=== PATIENT | female | born 1935 | race Caucasian/White ===

== ENCOUNTER 2019-06-18 03:58 | Emergency (ER) | payer OTHER, MEDICARE ==
[~2019-06-18] VITALS: Ht 170.2 cm; Wt 68.0 kg
[~2019-06-18 03:58] MED LIST: ACETAMINOPHEN325 M1 PO; ADVAIR HFA 230M12 GM; ALBUTEROL2.5 MG/0.5 INH; ALDACTONE25 MG PO; ATIVAN1 MG PO; BACTRIM DS TAB1 EACH PO; BENADRYL25 MG PO; CARVEDILOL3.125 MG PO; CARVEDILOL6.25 MG PO; CIPROFLOXACIN500 M1 PO; DULERA 100 MCG/13 GM; DUONEB 2.5-0.5 M3 ML INH; HYDROCODONE-AP1 EAC6 PO; KLOR-CON 1010 MEQ; LASIX 20 MG TAB20 MG PO; LEVAQUIN 500 M500 M2 PO; LEVAQUIN 500 M500 M4 PO; LEVAQUIN 500 M500 M5; LISINOPRIL30 MG PO; LISINOPRIL5 MG PO; MACROBID 100 M100 M1 PO; MUCINEX600 MG; NORCO 5-325 TA1 EACH PO; PANTOPRAZOLE SO40 M1 PO; PHENERGAN-CODE120 ML; PLAVIX 75 MG TA75 M1 PO; PLAVIX 75 MG TA75 MG PO; PREDNISONE 10 M10 MG PO; PREDNISONE 20 M20 MG PO; PROAIR HFA8.5 GM; PROTONIX40 M1 PO; PROVENTIL HFA6.7 G1 INH; SINGULAIR 10 MG10 M1 PO; TUDORZA PRESS400 MCG INH; VENTOLIN HFA 1818 GM INH; ZOCOR 20 MG TAB20 M1 PO; ZPAK PO
[2019-06-18] MEDS ORDERED: LIPITOR10 MG PO (04:07)
[2019-06-18] MEDS ORDERED: LOPRESSOR50 MG PO (04:08)
[2019-06-18 04:35] LABS: ABSOLUTE NEUTROPHILS 3.2 thou/uL (1.4-8.2); BASOPHILS 0.7 % (0.0-2.0); EOSINOPHILS 5.7 % (0.0-3.0); HEMATOCRIT 42.2 % (37.0-47.0); HEMOGLOBIN 14.1 gm/dL (12.0-15.0); LYMPHOCYTES 26.7 % (24.0-44.0); MCH 30.7 pg (26.0-34.0); MCHC 33.4 g/dL (28.0-37.0); MCV 92.1 fL (80.0-100.0); PLATELET COUNT 268 thou/uL (150-400); POLYS 56.9 % (36.0-66.0); RBC 4.58 mil/uL (4.20-5.00); RDW 12.8 % (10.5-14.5); WBC 5.7 thou/uL (4.0-11.0)
[2019-06-18 04:47] LABS: ANION GAP 8 mmol/L (7-16); BUN 21 mg/dL (7-18); CALCIUM 10.2 mg/dL (8.5-10.1); CHLORIDE 101 mmol/L (98-107); CO2 32 mmol/L (21-32); GLUCOSE 85 mg/dL (74-106); POTASSIUM 4.1 mmol/L (3.5-5.1); SODIUM 141 mmol/L (136-145)
[2019-06-18 04:56] LABS: TROPONIN-I <0.06 ng/mL (<0.06)
[2019-06-18 05:42] LABS: URINE BILIRUBIN NEGATIVE (Negative); URINE BLOOD NEGATIVE (Negative); URINE CLARITY CLEAR; URINE COLOR YELLOW; URINE GLUCOSE-RANDOM* NEGATIVE (Negative); URINE KETONES NEGATIVE (Negative); URINE LEUKOCYTES-REFLEX 1+ (Negative); URINE NITRITE-REFLEX NEGATIVE (Negative); URINE PROTEIN (DIPSTICK) NEGATIVE (Negative); URINE SPECIFIC GRAVITY <= 1.005 (1.005-1.035); URINE UROBILINOGEN 0.2 E.U./dl (0.2-1.0)
[2019-06-18 05:48] LABS: BACTERIA-REFLEX None Seen /HPF (None Seen); CASTS None Seen /LPF (None Seen); CRYSTALS None Seen /LPF (None Seen); MUCUS None Seen strn/LPF (None Seen); SQUAMOUS 0-3 Few /LPF (0-3); URINE RBC None Seen /HPF (0-2); URINE WBC-REFLEX 0-5 Rare /HPF (0-5)
[2019-06-18] MEDS ORDERED: TYLENOL WITH CO1 TA1 PO (06:12)
[2019-06-18 06:26] VITALS: BP 142/97
--- NOTE | 2019-06-20 16:00 | EKG ---
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
== END 2019-06-18 06:29 | disposition home or self-care (01) ==
LOC: ER 03:58
PROVIDERS: Emergency Medicine
DX: J06.9 Acute upper respiratory infection, unspecified (principal); J45.909 Unspecified asthma, uncomplicated; Z90.49 Acquired absence of other specified parts of digestive tract; Z91.018 Allergy to other foods; Z91.013 Allergy to seafood; Z91.011 Allergy to milk products; Z88.0 Allergy status to penicillin

== ENCOUNTER 2020-05-15 09:43 | Emergency (ER) | payer OTHER, MEDICARE ==
[~2020-05-15] VITALS: Ht 167.6 cm; Wt 66.7 kg
[~2020-05-15 09:43] MED LIST changes: +LIPITOR10 MG PO; +LOPRESSOR50 MG PO; +TYLENOL WITH CO1 TA1 PO
--- NOTE | 2020-05-15 10:03 | EKG ---
[facility] [place] [address] ELECTROCARDIOGRAM REPORT Name: LUZ MARIA MARQUEZ Room #: PRE [facility].#: [id number] Admission: Attend Phys: Discharge: Date of : 31 Report #: [id number] THIS REPORT FOR: cc: Teodoro Velazco MD, Steven A. 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
[2020-05-15] MEDS ORDERED: VENTOLIN HFA 1818 GM INH (10:25)
[2020-05-15] MEDS ORDERED: LIPITOR10 MG PO (10:25)
[2020-05-15] MEDS ORDERED: LISINOPRIL10 MG PO (10:25)
[2020-05-15] MEDS ORDERED: TOPROL XL25 MG PO (10:26)
[2020-05-15] MEDS ORDERED: PLAVIX 75 MG TA75 MG PO (10:26)
[2020-05-15] MEDS ORDERED: BENADRYL25 MG PO (10:28)
[2020-05-15] MEDS ORDERED: BUDESONIDE1 MG/2 ML INH (10:29)
[2020-05-15] MEDS ORDERED: PERFOROMIS20 MCG/2 M INH (10:29)
[2020-05-15 10:30] LABS: ABSOLUTE NEUTROPHILS 4.1 thou/uL (1.4-8.2); BASOPHILS 0.7 % (0.0-2.0); HEMATOCRIT 43.9 % (37.0-47.0); HEMOGLOBIN 14.6 gm/dL (12.0-15.0); LYMPHOCYTES 20.1 % (24.0-44.0); MCH 31.3 pg (26.0-34.0); MCHC 33.2 g/dL (28.0-37.0); MCV 94.2 fL (80.0-100.0); PLATELET COUNT 229 thou/uL (150-400); POLYS 67.2 % (36.0-66.0); RBC 4.66 mil/uL (4.20-5.00); RDW 13.1 % (10.5-14.5); WBC 6.1 thou/uL (4.0-11.0)
[2020-05-15 10:43] LABS: ANION GAP 5 mmol/L (7-16); BUN 26 mg/dL (7-18); CALCIUM 10.2 mg/dL (8.5-10.1); CHLORIDE 104 mmol/L (98-107); CO2 30 mmol/L (21-32); CREATININE 1.2 mg/dL (0.6-1.0); GLUCOSE 87 mg/dL (74-106); POTASSIUM 4.4 mmol/L (3.5-5.1); SODIUM 139 mmol/L (136-145)
[2020-05-15 10:53] LABS: ALBUMIN 3.7 g/dL (3.4-5.0); MAGNESIUM 2.1 mg/dL (1.8-2.4); SGPT 20 U/L (30-65); TOTAL BILIRUBIN 0.5 mg/dL (0.2-1.0); TOTAL PROTEIN 6.8 g/dL (6.4-8.2); TROPONIN-I <0.06 ng/mL (<0.06)
[2020-05-15 11:03] LABS: SGOT 23 U/L (15-37)
[2020-05-15 11:04] LABS: URINE BILIRUBIN NEGATIVE (Negative); URINE BLOOD NEGATIVE (Negative); URINE CLARITY CLEAR; URINE COLOR YELLOW; URINE GLUCOSE-RANDOM* NEGATIVE (Negative); URINE KETONES NEGATIVE (Negative); URINE LEUKOCYTES-REFLEX 2+ (Negative); URINE NITRITE-REFLEX NEGATIVE (Negative); URINE PROTEIN (DIPSTICK) NEGATIVE (Negative); URINE UROBILINOGEN 0.2 E.U./dl (0.2-1.0)
[2020-05-15 11:28] LABS: CASTS None Seen /LPF (None Seen); CRYSTALS None Seen /LPF (None Seen); SQUAMOUS >10 Many /LPF (0-3)
[2020-05-15 11:29] LABS: URINE WBC-REFLEX 6-15 Few /HPF (0-5)
[2020-05-15 11:31] LABS: BACTERIA-REFLEX 1-9 Few /HPF (None Seen); URINE RBC None Seen /HPF (0-2)
[2020-05-15] MEDS ORDERED: ATIVAN0.5 M1 PO (11:58)
[2020-05-15 12:55] VITALS: BP 141/56
== END 2020-05-15 13:05 | disposition home or self-care (01) ==
LOC: ER 09:43
PROVIDERS: Emergency Medicine
DX: R53.1 Weakness (principal); F41.8 Other specified anxiety disorders; R06.00 Dyspnea, unspecified; R51.9 Headache, unspecified; N18.9 Chronic kidney disease, unspecified; J45.909 Unspecified asthma, uncomplicated; Z79.899 Other long term (current) drug therapy; Z88.0 Allergy status to penicillin; Z88.6 Allergy status to analgesic agent; Z91.013 Allergy to seafood; Z91.018 Allergy to other foods; Z91.011 Allergy to milk products

== ENCOUNTER → 2020-05-16 | Outpatient (CLI) | payer OTHER, MEDICARE ==
[~2020-05-16] MED LIST changes: +ATIVAN0.5 M1 PO; +BUDESONIDE1 MG/2 ML INH; +LISINOPRIL10 MG PO; +PERFOROMIS20 MCG/2 M INH; +TOPROL XL25 MG PO
== END ==
LOC: RAD 10:53
PROVIDERS: ATTEND Family Medicine
DX: Z12.31 Encounter for screening mammogram for malignant neoplasm of breast (principal)

== ENCOUNTER 2020-05-21 01:39 | Emergency (ER) | payer OTHER, MEDICARE ==
[~2020-05-21] VITALS: Ht 167.6 cm; Wt 66.7 kg
[2020-05-21] MEDS ORDERED: HYDROCODON-ACE1 EAC7 PO (02:17)
[2020-05-21 02:21] LABS: ABSOLUTE NEUTROPHILS 3.9 thou/uL (1.4-8.2); BASOPHILS 0.6 % (0.0-2.0); EOSINOPHILS 2.9 % (0.0-3.0); HEMOGLOBIN 14.6 gm/dL (12.0-15.0); LYMPHOCYTES 20.3 % (24.0-44.0); MCH 31.2 pg (26.0-34.0); MCHC 33.2 g/dL (28.0-37.0); MCV 94.2 fL (80.0-100.0); MONOCYTES 9.3 % (1.0-8.0); PLATELET COUNT 224 thou/uL (150-400); POLYS 66.9 % (36.0-66.0); RBC 4.67 mil/uL (4.20-5.00); WBC 5.8 thou/uL (4.0-11.0)
[2020-05-21] MEDS ORDERED: MULTIVITAMIN PO (02:21)
[2020-05-21] MEDS ORDERED: MAGNESIUM250 M1 PO (02:21)
[2020-05-21] MEDS ORDERED: LOPRESSOR50 MG PO (02:23)
[2020-05-21 02:28] LABS: CALCIUM 9.9 mg/dL (8.5-10.1); CREATININE 1.1 mg/dL (0.6-1.0); POTASSIUM 3.9 mmol/L (3.5-5.1)
[2020-05-21 02:31] LABS: ALBUMIN 3.8 g/dL (3.4-5.0); TOTAL BILIRUBIN 0.6 mg/dL (0.2-1.0); TOTAL PROTEIN 6.9 g/dL (6.4-8.2)
[2020-05-21 03:46] VITALS: BP 187/73
--- NOTE | 2020-05-21 13:25 | EKG ---
[facility] [place] [address] ELECTROCARDIOGRAM REPORT Name: LUZ MARIA MARQUEZ Room #: DEP [facility]#: [id number] Admission: 05/21/20 Attend Phys: Discharge: 05/21/20 Date of : 31 Report #: [id number] THIS REPORT FOR: cc: Federico Diaz MD, Neal A. 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: : 1935 Requested By: Trevor Smith Order Number: [id number] MD: Neo Weinstein Measurements Intervals [place] Rate: 67 P: 73 [place]: 196 QRS: -58 QRSD: 93 T: 30 QT: 399 QTc: 422 Interpretive Statements Sinus rhythm Anteroseptal infarct, age indeterminate Lateral leads are also involved Compared to ECG 05/15/2020 09:55:47 No significant change Electronically Signed On 05-21-2020 13:24:55 VISUAL COMMUNICATIONS INSTRUCTOR by Neo Weinstein [email or web address] <ELECTRONICALLY SIGNED> By: Neo Weinstein MD, FACC 05/21/20 1324 Neo Weinstein MD, FACC /EPI
== END 2020-05-21 03:47 | disposition home or self-care (01) ==
LOC: ER 01:39
PROVIDERS: Emergency Medicine
DX: I10 Essential (primary) hypertension (principal); J45.909 Unspecified asthma, uncomplicated; Z79.01 Long term (current) use of anticoagulants; Z79.899 Other long term (current) drug therapy; Z88.0 Allergy status to penicillin; Z88.6 Allergy status to analgesic agent; Z88.8 Allergy status to other drugs, medicaments and biological substances; Z91.018 Allergy to other foods; Z91.013 Allergy to seafood; Z91.011 Allergy to milk products; Z20.828 Contact with and (suspected) exposure to other viral communicable diseases

== ENCOUNTER 2020-06-04 02:06 | Emergency (ER) | payer OTHER, MEDICARE ==
[~2020-06-04] VITALS: Ht 167.6 cm; Wt 64.0 kg
[~2020-06-04 02:06] MED LIST changes: +HYDROCODON-ACE1 EAC7 PO; +MAGNESIUM250 M1 PO; +MULTIVITAMIN PO
[2020-06-04 02:40] LABS: BASOPHILS 0.9 % (0.0-2.0); EOSINOPHILS 3.4 % (0.0-3.0); HEMATOCRIT 43.5 % (37.0-47.0); HEMOGLOBIN 14.6 gm/dL (12.0-15.0); MCH 31.5 pg (26.0-34.0); MCHC 33.6 g/dL (28.0-37.0); MCV 93.5 fL (80.0-100.0); MONOCYTES 8.4 % (1.0-8.0); PLATELET COUNT 226 thou/uL (150-400); POLYS 62.3 % (36.0-66.0); RBC 4.65 mil/uL (4.20-5.00); WBC 6.4 thou/uL (4.0-11.0)
[2020-06-04 02:47] LABS: ANION GAP 10 mmol/L (7-16); BUN 21 mg/dL (7-18); CALCIUM 9.8 mg/dL (8.5-10.1); CHLORIDE 106 mmol/L (98-107); CO2 26 mmol/L (21-32); GLUCOSE 95 mg/dL (74-106); POTASSIUM 3.8 mmol/L (3.5-5.1); SODIUM 142 mmol/L (136-145)
[2020-06-04 02:58] LABS: TROPONIN-I <0.06 ng/mL (<0.06)
[2020-06-04 04:10] VITALS: BP 171/66
--- NOTE | 2020-06-04 07:39 | EKG ---
[facility] [place] [address] ELECTROCARDIOGRAM REPORT Name: LUZ MARIA MARQUEZ [facility] [id number] Admission: 06/04/20 Attend Phys: Discharge: 06/04/20 Date of : 31 Report #: [id number] THIS REPORT FOR: cc: Federico Diaz MD, Neal A. MD Santiago, Patrick MD [facility] ~ THIS REPORT FOR: //name// [facility] ED Test Date: 2020-06-04 Test Time: 02:59:26 Pat Name: LUZ MARIA MARQUEZ Department: Room: Gender: Curriculum Facilitator: [email or web address] : 1935 Requested By: Hayder Cordova Order Number: [id number] MD: Neo Weinstein Measurements Intervals [place] Rate: 58 P: 74 [place]: 189 QRS: -61 QRSD: 95 T: 42 QT: 398 QTc: 391 Interpretive Statements Sinus rhythm Left anterior fascicular block Anterior infarct, old Baseline wander in lead(s) V5,V6 Compared to ECG 05/21/2020 02:07:17 Left anterior fascicular block now present Myocardial infarct finding still present Electronically Signed On 06-04-2020 7:39:14 CANNING MACHINE OPERATOR by Neo Weinstein [email or web address] <ELECTRONICALLY SIGNED> By: Neo Weinstein MD, FACC 06/04/20 0739 8 8 Neo Weinstein MD, [facility] /EPI
== END 2020-06-04 04:11 | disposition home or self-care (01) ==
LOC: ER 02:06
PROVIDERS: Emergency Medicine
DX: I10 Essential (primary) hypertension (principal); J45.909 Unspecified asthma, uncomplicated; Z79.01 Long term (current) use of anticoagulants; Z79.899 Other long term (current) drug therapy; Z88.0 Allergy status to penicillin; Z88.6 Allergy status to analgesic agent; Z91.013 Allergy to seafood; Z91.018 Allergy to other foods; Z91.011 Allergy to milk products

== ENCOUNTER 2020-06-07 16:58 | Emergency (ER) | payer OTHER, MEDICARE ==
[~2020-06-07] VITALS: Ht 167.6 cm; Wt 64.0 kg
[2020-06-07 17:32] LABS: ABSOLUTE NEUTROPHILS 3.8 thou/uL (1.4-8.2); BASOPHILS 0.5 % (0.0-2.0); EOSINOPHILS 2.3 % (0.0-3.0); HEMATOCRIT 42.5 % (37.0-47.0); HEMOGLOBIN 14.3 gm/dL (12.0-15.0); LYMPHOCYTES 23.6 % (24.0-44.0); MCH 31.5 pg (26.0-34.0); MCHC 33.5 g/dL (28.0-37.0); MCV 94.1 fL (80.0-100.0); MONOCYTES 9.6 % (1.0-8.0); PLATELET COUNT 216 thou/uL (150-400); RBC 4.52 mil/uL (4.20-5.00); RDW 12.9 % (10.5-14.5); WBC 5.9 thou/uL (4.0-11.0)
[2020-06-07 17:47] LABS: ANION GAP 7 mmol/L (7-16); BUN 18 mg/dL (7-18); CALCIUM 10.4 mg/dL (8.5-10.1); CHLORIDE 104 mmol/L (98-107); CO2 30 mmol/L (21-32); CREATININE 1.1 mg/dL (0.6-1.0); GLUCOSE 102 mg/dL (74-106); POTASSIUM 4.1 mmol/L (3.5-5.1); SODIUM 141 mmol/L (136-145)
[2020-06-07 17:57] LABS: ALBUMIN 3.9 g/dL (3.4-5.0); DIRECT BILIRUBIN 0.2 mg/dL (<0.1-0.2); LIPASE 137 U/L (73-393); SGOT 27 U/L (15-37); SGPT 29 U/L (30-65); TOTAL BILIRUBIN 0.5 mg/dL (0.2-1.0); TOTAL PROTEIN 6.7 g/dL (6.4-8.2); TROPONIN-I <0.06 ng/mL (<0.06)
[2020-06-07 19:10] VITALS: BP 178/65
--- NOTE | 2020-06-08 07:32 | EKG ---
[facility] [address] [place] [address] ELECTROCARDIOGRAM REPORT Name: MARQUEZLUZ MARIA Room #: [facility] CON[facility] Walker#: [id number] Admission: 06/07/20 Attend Phys: Discharge: 06/07/20 Date of : 31 Report #: [id number] THIS REPORT FOR: cc: Federico Diaz MD, Neal A. MD Santiago, Patrick MD FACC ~ <ELECTRONICALLY SIGNED> By: Neo Weinstein MD, FACC 06/08/20 0731 1754 175 Neo Weinstein MD, FACC /EPI
== END 2020-06-07 19:10 | disposition home or self-care (01) ==
LOC: ER 16:58
PROVIDERS: Emergency Medicine
DX: I10 Essential (primary) hypertension (principal); R42 Dizziness and giddiness; J45.909 Unspecified asthma, uncomplicated; Z79.899 Other long term (current) drug therapy; Z79.01 Long term (current) use of anticoagulants; Z88.0 Allergy status to penicillin; Z88.6 Allergy status to analgesic agent; Z91.013 Allergy to seafood; Z91.018 Allergy to other foods; Z91.011 Allergy to milk products

== ENCOUNTER 2020-06-09 03:05 | Emergency (ER) | payer OTHER, MEDICARE ==
[~2020-06-09] VITALS: Ht 167.6 cm; Wt 64.0 kg
[2020-06-09] MEDS ORDERED: CATAPRES0.1 MG PO (03:42)
[2020-06-09] MEDS ORDERED: ATIVAN0.5 M1 PO ×2 (03:42→19:18)
[2020-06-09 04:22] VITALS: BP 150/77
== END 2020-06-09 04:32 | disposition home or self-care (01) ==
LOC: ER 03:05
DX: I10 Essential (primary) hypertension (principal); R51.9 Headache, unspecified; F41.8 Other specified anxiety disorders; J45.909 Unspecified asthma, uncomplicated; Z79.01 Long term (current) use of anticoagulants; Z79.899 Other long term (current) drug therapy; Z88.0 Allergy status to penicillin; Z88.6 Allergy status to analgesic agent; Z91.013 Allergy to seafood; Z91.018 Allergy to other foods; Z91.011 Allergy to milk products

== ENCOUNTER 2021-02-12 08:29 | Emergency (ER) | payer OTHER, MEDICARE ==
[~2021-02-12] VITALS: Ht 167.6 cm; Wt 62.1 kg
--- NOTE | ~2021-02-12 | EMS ---
[place] [address] EMS Patient Care Report Name: LUZ MARIA MARQUEZ Room #: DEP [facility] Walker#: [id number] Admission: 02/12/21 Attend Phys: Discharge: 02/12/21 Date of : 33 Report #: [id number] THIS REPORT FOR: //name// Report Transmitted: 02/14/2021 11:17 EMS Care Summary [place], [place]/[facility] Incident [id number] @ 02/12/2021 07:56 Incident Location [address] [place] [address] Patient LUZ MARIA MARQUEZ Female, 85 Years 1935 Patient Address [address] [place] [address] Patient History Asthma, Patient Allergies No known allergies, Patient Medications Albuterol, Chief Complaint SOA/ASTHMA Disposition Transported No Lights/[place] Dispatch Reason Breathing Problem Transported To [facility] Narrative UPON ARRIVAL WE FOUND OUR 85 YEAR OLD FEMALE PATIENT, WITH A HX OF ASTHMA, AMBULATING ON THE FRONT PORCH OF HER RESIDENCE COMPLAINING OF [place]ZES [place] [address] EMS Patient Care Report Name: LUZ MARIA MARQUEZ [facility] #: [facility]#: [id number] Admission: 02/12/21 Attend Phys: Discharge: 02/12/21 Date of : 31 Report #: [id number] SINCE YESTERDAY MORNING. THE PATIENT IS IN MODERATE RESP DISTRESS WITH TACHYPNEA, TACHYCARDIA, SLIGHT WHEEZES, TRIPODING, AND A GOOD SAO2 READING. THE PATIENT DENIES ANY CP, ABD PAIN, COOUGH, FEVER, CHILLS, OR ANOSMIA. SHE REQUESTS TRANSPORT TO [facility] FOR EVALUATION. Initial Vitals @08:22P: 108,R: 18,BP: 180/76,Pain: 0/10,GCS: 15,SpO2: 99,Revised Trauma: 12,[place] Suspected: false @08:03P: 128,R: 24,BP: 190/71,Pain: 0/10,GCS: 15,SpO2: 97,Revised Trauma: 12,GA Suspected: false Assessments @08:03MENTAL:Event Oriented,Place Oriented,Time Oriented,Person Oriented,SKIN:HEENT:Eyes: Left Pupil: 4-mm,Eyes: Right Pupil: 4-mm,Head/Face: No Abnormalities,LUNG SOUNDS:General: No Abnormalities,ABDOMEN:General: No Abnormalities,PELVIS//GI:No Abnormalities,EXTREMITIES:Left Arm: No Abnormalities,Right Arm: No Abnormalities,Left Leg: No Abnormalities,Right Leg: No Abnormalities,PULSE:Radial: 2+ Normal,NEURO:No Abnormalities, Impression Acute Respiratory Distress (Dyspnea) Procedures @08:03ALS AssessmentResponse: UnchangedSucceeded@08:05Albuterol - 2.5 Milligrams (mg) - NebulizedResponse: Improved@08:043-Lead ECGResponse: UnchangedSucceeded@08:08Saline Lock 0cc (20 ga) Site: Forearm-LeftResponse: UnchangedSucceeded Timeline 07:55,Call Received 07:55,Dispatch Notified 07:56,Dispatched 07:57,En Route 08:02,On Scene 08:03,At Patient 08:03,ALS Assessment,Response: UnchangedSucceeded, 08:03,BP: 190/71 M,PULSE: 128,RR: 24 R,SPO2: 97 Ox,ETCO2: ,BG: ,PAIN: 0,GCS: 15, 08:04,3-Lead ECG,Response: UnchangedSucceeded, 08:05,Albuterol - 2.5 Milligrams (mg) - Nebulized,Response: Improved 08:08,Saline Lock 0cc 20 ga Site: Forearm-Left,Response: UnchangedSucceeded, 08:08,Depart Scene 08:22,BP: 180/76 M,PULSE: 108,RR: 18 R,SPO2: 99 Ox,ETCO2: ,BG: ,PAIN: 0,GCS: 15, 08:23,At Destination 08:40,Call Closed [address] [address] EMS Patient Care Report Name: LUZ MARIA MARQUEZ Room #: DEP [facility] Walker#: [id number] Admission: 02/12/21 Attend Phys: Discharge: 02/12/21 Date of : 31 Report #: [id number] Disclaimer v1.1 Copyright 2020 [employer] This EMS Care Summary contains data elements from the applicable legal record (which may be displayed differently). It is designed to provide pertinent information for the following purposes: continuity of care, clinical quality, and state data reporting. The complete legal record is available to ED staff and administrators of the receiving hospital in ES's Patient Tracker. All data is provided "as is."
--- NOTE | ~2021-02-12 | EMS ---
[place] [address] EMS Patient Care Report Name: LUZ MARIA MARQUEZ Room #: DEP [facility] Walker#: [id number] Admission: 02/12/21 Attend Phys: Discharge: 02/12/21 Date of : 31 Report #: [id number] THIS REPORT FOR: //name// Report Transmitted: 02/13/2021 09:24 EMS Care Summary [place], [place]/[facility] Incident [id number] @ 02/12/2021 07:56 Incident Location [address] [place] [address] Patient LUZ MARIA MARQUEZ Female, 85 Years 1935 Patient Address [address] [place] [address] Patient History Asthma, Patient Allergies No known allergies, Patient Medications Albuterol, Chief Complaint SOA/ASTHMA Disposition Transported No Lights/[place] Dispatch Reason Breathing Problem Transported To [facility] Narrative UPON ARRIVAL WE FOUND OUR 85 YEAR OLD FEMALE PATIENT, WITH A HX OF ASTHMA, AMBULATING ON THE FRONT PORCH OF HER RESIDENCE COMPLAINING OF WHEEZES [place] [address] EMS Patient Care Report Name: LUZM ARIA MARQUEZ [facility] #: [facility] [id number] Admission: 02/12/21 Attend Phys: Discharge: 02/12/21 Date of : 31 Report #: [id number] SINCE YESTERDAY MORNING. THE PATIENT IS IN MODERATE RESP DISTRESS WITH TACHYPNEA, TACHYCARDIA, SLIGHT WHEEZES, TRIPODING, AND A GOOD SAO2 READING. THE PATIENT DENIES ANY CP, ABD PAIN, COOUGH, FEVER, CHILLS, OR ANOSMIA. SHE REQUESTS TRANSPORT TO [facility] FOR EVALUATION. Initial Vitals @08:22P: 108,R: 18,BP: 180/76,Pain: 0/10,GCS: 15,SpO2: 99,Revised Trauma: 12,[place] Suspected: false @08:03P: 128,R: 24,BP: 190/71,Pain: 0/10,GCS: 15,SpO2: 97,Revised Trauma: 12,NV Suspected: false Assessments @08:03MENTAL:Person Oriented,Time Oriented,Place Oriented,Event Oriented,SKIN:HEENT:Eyes: Right Pupil: 4-mm,Eyes: Left Pupil: 4-mm,Head/Face: No Abnormalities,LUNG SOUNDS:General: No Abnormalities,ABDOMEN:General: No Abnormalities,PELVIS//GI:No Abnormalities,EXTREMITIES:Left Arm: No Abnormalities,Right Arm: No Abnormalities,Left Leg: No Abnormalities,Right Leg: No Abnormalities,PULSE:Radial: 2+ Normal,NEURO:No Abnormalities, Impression Acute Respiratory Distress (Dyspnea) Procedures @08:03ALS AssessmentResponse: UnchangedSucceeded@08:05Albuterol - 2.5 Milligrams (mg) - NebulizedResponse: Improved@08:043-Lead ECGResponse: UnchangedSucceeded@08:08Saline Lock 0cc (20 ga) Site: Forearm-LeftResponse: UnchangedSucceeded Timeline 07:55,Call Received 07:55,Dispatch Notified 07:56,Dispatched 07:57,En Route 08:02,On Scene 08:03,At Patient 08:03,ALS Assessment,Response: UnchangedSucceeded, 08:03,BP: 190/71 M,PULSE: 128,RR: 24 R,SPO2: 97 Ox,ETCO2: ,BG: ,PAIN: 0,GCS: 15, 08:04,3-Lead ECG,Response: UnchangedSucceeded, 08:05,Albuterol - 2.5 Milligrams (mg) - Nebulized,Response: Improved 08:08,Saline Lock 0cc 20 ga Site: Forearm-Left,Response: UnchangedSucceeded, 08:08,Depart Scene 08:22,BP: 180/76 M,PULSE: 108,RR: 18 R,SPO2: 99 Ox,ETCO2: ,BG: ,PAIN: 0,GCS: 15, 08:23,At Destination 08:40,Call Closed [address] [address] EMS Patient Care Report Name: LUZ MARIA MARQUEZ Room #: DEP [facility] Walker#: [id number] Admission: 02/12/21 Attend Phys: Discharge: 02/12/21 Date of : 31 Report #: [id number] Disclaimer v1.1 Copyright 2020 [employer] This EMS Care Summary contains data elements from the applicable legal record (which may be displayed differently). It is designed to provide pertinent information for the following purposes: continuity of care, clinical quality, and state data reporting. The complete legal record is available to ED staff and administrators of the receiving hospital in ES's Patient Tracker. All data is provided "as is."
[~2021-02-12 08:29] MED LIST changes: +CATAPRES0.1 MG PO
[2021-02-12 09:21] LABS: ABSOLUTE NEUTROPHILS 4.1 thou/uL (1.4-8.2); BASOPHILS 0.7 % (0.0-2.0); EOSINOPHILS 3.6 % (0.0-3.0); HEMATOCRIT 43.1 % (37.0-47.0); HEMOGLOBIN 14.4 gm/dL (12.0-15.0); LYMPHOCYTES 34.2 % (24.0-44.0); MCH 31.9 pg (26.0-34.0); MCHC 33.4 g/dL (28.0-37.0); MCV 95.6 fL (80.0-100.0); MONOCYTES 8.3 % (1.0-8.0); PLATELET COUNT 225 thou/uL (150-400); POLYS 53.2 % (36.0-66.0); RBC 4.51 mil/uL (4.20-5.00); RDW 13.4 % (10.5-14.5); WBC 7.7 thou/uL (4.0-11.0)
[2021-02-12 09:30] LABS: ANION GAP 6 mmol/L (7-16); BUN 28 mg/dL (7-18); CALCIUM 9.7 mg/dL (8.5-10.1); CHLORIDE 107 mmol/L (98-107); CO2 29 mmol/L (21-32); CREATININE 1.2 mg/dL (0.6-1.0); GLUCOSE 102 mg/dL (74-106); POTASSIUM 4.1 mmol/L (3.5-5.1); SODIUM 142 mmol/L (136-145)
[2021-02-12 09:41] LABS: ALBUMIN 3.8 g/dL (3.4-5.0); SGOT 24 U/L (15-37); SGPT 26 U/L (30-65); TOTAL BILIRUBIN 0.5 mg/dL (0.2-1.0); TOTAL PROTEIN 7.3 g/dL (6.4-8.2); TROPONIN-I <0.06 ng/mL (<0.06)
[2021-02-12] MEDS ORDERED: PREDNISONE 20 M20 MG PO (11:28)
[2021-02-12 14:22] VITALS: BP 110/62
--- NOTE | 2021-02-13 07:47 | EKG ---
[address] [place] [address] [place] [address] ELECTROCARDIOGRAM REPORT Name: LUZ MARIA MARQUEZ Room #: [facility] CONRAD Walker#: [id number] Admission: 02/12/21 Attend Phys: Discharge: 02/12/21 Date of : 31 Report #: [id number] [facility] ED Test Date: 2021-02-12 Test Time: 08:40:55 Pat Name: LUZ MARIA MARQUEZ Department: Room: Gender: F Civil Clerk: TRACY : 1935 Requested By: Mookie John Order Number: [id number] MD: Neo Weinstein Measurements Intervals [place] Rate: 106 P: 90 [place]: 157 QRS: -64 QRSD: 157 T: 100 QT: 375 QTc: 498 Interpretive Statements Sinus tachycardia Ventricular premature complex Nonspecific IVCD with LAD LVH with secondary repolarization abnormality Compared to ECG 06/07/2020 17:54:39 Ventricular premature complex(es) now present Intraventricular conduction delay now present Left ventricular hypertrophy now present Early repolarization now present Sinus rhythm no longer present Left-axis deviation no longer present Electronically Signed On 02-13-2021 7:46:57 CDT by Neo Weinstein [email or web address] <ELECTRONICALLY SIGNED> By: Neo Weinstein MD, FACC 02/13/21 0746 Neo Weinstein MD, [facility] /EPI
== END 2021-02-12 14:23 | disposition home or self-care (01) ==
LOC: ER 08:29
PROVIDERS: Emergency Medicine
DX: J45.901 Unspecified asthma with (acute) exacerbation (principal); Z20.822 Contact with and (suspected) exposure to COVID-19; R79.0 Abnormal level of blood mineral; I10 Essential (primary) hypertension; Z98.890 Other specified postprocedural states; Z79.51 Long term (current) use of inhaled steroids; Z79.891 Long term (current) use of opiate analgesic; Z79.899 Other long term (current) drug therapy; Z79.1 Long term (current) use of non-steroidal anti-inflammatories (NSAID); Z91.011 Allergy to milk products; Z88.0 Allergy status to penicillin; Z91.013 Allergy to seafood; Z88.8 Allergy status to other drugs, medicaments and biological substances; Z91.018 Allergy to other foods; Z91.09 Other allergy status, other than to drugs and biological substances

== ENCOUNTER 2021-04-22 15:40 | Emergency (ER) | payer OTHER, MEDICARE ==
[~2021-04-22] VITALS: Ht 167.6 cm; Wt 64.0 kg
--- NOTE | ~2021-04-22 | EMS ---
[place] [address] EMS Patient Care Report Name: LUZ MARIA MARQUEZ Room #: REG [facility] Walker#: [id number] Admission: 04/22/21 Attend Phys: Discharge: Date of : 31 Report #: [id number] THIS REPORT FOR: //name// Report Transmitted: 04/22/2021 15:22 EMS Care Summary [place], [place]/[facility] Incident [id number] @ 04/22/2021 15:06 Incident Location [address] [place] [address] Patient LUZ MARIA MARQUEZ Female, 85 Years 1935 Patient Address [address] [place] [address] Patient History Asthma,Hypertension (HTN),Back Pain (Chronic), Patient Allergies Penicillin allergy, Patient Medications Albuterol, Chief Complaint weakness Disposition Transported No Lights/[place] Dispatch Reason Back Pain (Non-Traumatic) Transported To [facility] Narrative pt found ambulatory at the curb. she states she feels like she has a fever but her thermometer doesn't work. she w/o mild general weakness [place] [address] EMS Patient Care Report Name: LUZ MARIA MARQUEZ Room #: REG [place].#: [id number] Admission: 04/22/21 Attend Phys: Discharge: Date of : 31 Report #: [id number] back pain. she req eval at [facility]. pt seated on cot, VS, temp 98.6, transport w/o change. Initial Vitals @15:23P: 88,R: 20,BP: 169/72,Pain: 8/10,GCS: 15,Temp: 98.6F,SpO2: 96,Revised Trauma: 12, Assessments @15:19MENTAL:No Abnormalities,SKIN:No Abnormalities,HEENT:Head/Face: No Abnormalities,LUNG SOUNDS:ABDOMEN:PELVIS//GI:EXTREMITIES:PULSE:Radial: 2+ Normal,NEURO:Other, Impression Generalized Weakness Procedures @15:19 ALS Assessment Response: Unchanged @15:20 Stretcher Response: Unchanged Timeline 15:03,Call Received 15:03,Dispatch Notified 15:06,Dispatched 15:07,En Route 15:18,On Scene 15:19,At Patient 15:19,ALS Assessment,Response: Unchanged 15:20,Stretcher,Response: Unchanged 15:23,Depart Scene 15:23,BP: 169/72 M,PULSE: 88,RR: 20 R,SPO2: 96 Ox,ETCO2: ,BG: ,PAIN: 8,GCS: 15, 15:36,At Destination 15:50,Call Closed Disclaimer v1.1 Copyright 2020 [employer] This EMS Care Summary contains data elements from the applicable legal record (which may be displayed differently). It is designed to provide pertinent information for the following purposes: continuity of care, clinical quality, and state data reporting. The complete legal record is available to ED staff and administrators of the receiving hospital in [facility]'s Patient Tracker. All data is provided "as is."
[2021-04-22 16:10] LABS: ABSOLUTE NEUTROPHILS 4.2 thou/uL (1.4-8.2); BASOPHILS 0.8 % (0.0-2.0); EOSINOPHILS 3.8 % (0.0-3.0); HEMATOCRIT 40.4 % (37.0-47.0); HEMOGLOBIN 13.4 gm/dL (12.0-15.0); MCH 30.7 pg (26.0-34.0); MCHC 33.1 g/dL (28.0-37.0); MCV 92.8 fL (80.0-100.0); MONOCYTES 9.4 % (1.0-8.0); PLATELET COUNT 205 thou/uL (150-400); RBC 4.35 mil/uL (4.20-5.00); WBC 6.3 thou/uL (4.0-11.0)
[2021-04-22 16:22] LABS: CALCIUM 9.5 mg/dL (8.5-10.1)
[2021-04-22 16:23] LABS: MAGNESIUM 2.1 mg/dL (1.8-2.4)
[2021-04-22] MEDS ORDERED: HYDROCODON-ACE1 EAC7 PO (16:49)
[2021-04-22] MEDS ORDERED: CARAFATE 1 GM TA1 G1 PO (16:56)
[2021-04-22] MEDS ORDERED: PEPCID20 MG PO (16:56)
[2021-04-22] MEDS ORDERED: ONDANSETRON HCL4 M2 PO (16:56)
[2021-04-22 17:03] VITALS: BP 159/60
== END 2021-04-22 17:19 | disposition home or self-care (01) ==
LOC: ER 15:40
PROVIDERS: Nurse Practitioner
DX: G89.29 Other chronic pain (principal); Z20.822 Contact with and (suspected) exposure to COVID-19; M54.9 Dorsalgia, unspecified; J45.909 Unspecified asthma, uncomplicated; I10 Essential (primary) hypertension; Z90.49 Acquired absence of other specified parts of digestive tract; Z79.899 Other long term (current) drug therapy; Z91.02 Food additives allergy status; Z91.011 Allergy to milk products; Z88.0 Allergy status to penicillin; Z91.013 Allergy to seafood